=== PATIENT | male | born 1975 | race Caucasian/White ===

== ENCOUNTER 2023-06-20 15:07 | Inpatient (IN) | payer OTHER ==
[2023-06-20 17:58] VITALS: BMI 23.3
[2023-06-20] MEDS ORDERED: IBUPROFEN 600 MG TABLET (FP) PO PRN (18:32)
[2023-06-20] MEDS ORDERED: LOPERAMIDE HCL 2 MG CAPSULE PO PRN (18:32)
[2023-06-20] MEDS ORDERED: BENZONATATE 200 MG CAPSULE PO PRN (18:32)
[2023-06-20] MEDS ORDERED: NICOTINE POLACRILEX 2 MG LOZENGE BC PRN (18:32)
[2023-06-20] MEDS ORDERED: P-EPHED 60MG/TRIPROLIDI 2.5MG TABLET PO PRN (18:32)
[2023-06-20] MEDS ORDERED: IBUPROFEN 400 MG TABLET (FP) PO PRN (18:32)
[2023-06-20] MEDS ORDERED: ONDANSETRON *ODT* 4 MG TABLET SL PRN (18:32)
[2023-06-20] MEDS ORDERED: ACETAMINOPHEN 325 MG TABLET (FP) PO PRN (18:32)
[2023-06-20] MEDS ORDERED: DICYCLOMINE HCL 10 MG CAPSULE PO PRN (18:32)
[2023-06-20] MEDS ORDERED: POLYETHYLENE GLYCOL (HEALTHYLAX) 3350 17 GM PACKET PO PRN (18:32)
[2023-06-20] MEDS ORDERED: guaiFENesin 600 MG TABLET.ER (FP) PO PRN (18:32)
[2023-06-20] MEDS ORDERED: NALOXONE HCL (KLOXXADO) 8 MG SPRAY NS PRN (18:32)
[2023-06-20] MEDS ORDERED: BISMUTH SUBSALICYLATE 524 MG/30 ML PO PRN (18:32)
[2023-06-20] MEDS ORDERED: MAG HYDROX/AL HYDROX/SIMETH 30 ML UNIT-DOSE CUP PO PRN (18:32)
[2023-06-20] MEDS ORDERED: MAGNESIUM HYDROX 2400MG/30ML ORAL SUSPENSION 30 ML CUP PO PRN (18:32)
[2023-06-20] MEDS ORDERED: BENZOCAINE/MENTHOL (CHLORASEPTIC ) LOZENGE MM PRN (18:32)
[2023-06-20] MEDS ORDERED: NALOXONE HCL 0.4 MG/ML VIAL IM PRN (18:32)
[2023-06-20] MEDS ORDERED: NICOTINE 14 MG/24 HOURS TOPICAL PATCH TD ONE (20:05)
[2023-06-20] MEDS: hydrOXYzine PAMOATE 25 MG CAPSULE (FP) PO PRN (22:31)
[2023-06-20] MEDS: METHOCARBAMOL 500 MG TABLET PO PRN (22:31)
[2023-06-20] MEDS: MELATONIN 5 MG TABLETS PO SCH (22:31)
[2023-06-20] MEDS: THIAMINE HCL 100 MG TABLET (FP) PO SCH (22:31)
[2023-06-21] MEDS: NICOTINE 14 MG/24 HOURS TOPICAL PATCH TD SCH (10:17)
[2023-06-21] MEDS: PRENATAL VITAMINS W/ FOLIC ACID TABLET (FP) PO SCH (10:17)
[2023-06-21] MEDS: METHOCARBAMOL 500 MG TABLET PO PRN ×3 (10:19→23:13)
[2023-06-21] MEDS: hydrOXYzine PAMOATE 25 MG CAPSULE (FP) PO PRN ×3 (10:19→23:13)
[2023-06-21] MEDS ORDERED: busPIRone HCL 5 MG TABLET PO ONE (11:14)
[2023-06-21 11:22] LABS: HEMATOCRIT 44.7 % (35.4-49); HEMOGLOBIN 15.2 GM/dL (11.7-16.9); MCH 31.6 pg (25.7-33.7); MEAN CELL VOLUME 92.9 fl (80-96); MEAN PLT VOLUME 7.5 fl (7.5-11.1); PLATELET COUNT 206 10^3/uL (134-434); RBC 4.81 M/mm3 (4.00-5.60); RDW 13.9 % (11.9-15.9); WHITE BLOOD COUNT 7.8 K/mm3 (4.0-10.0)
[2023-06-21 11:23] LABS: POTASSIUM 4.1 mmol/L (3.5-5.1)
[2023-06-21 11:35] LABS: CALCIUM 8.4 mg/dL (8.5-10.1)
[2023-06-21 11:36] LABS: ALBUMIN 3.2 g/dl (3.4-5.0); BLOOD UREA NITROGEN 14.9 mg/dL (7-18)
[2023-06-21 11:39] LABS: CREATININE 0.9 mg/dL (0.55-1.3)
[2023-06-21 11:40] LABS: BILIRUBIN,TOTAL 0.3 mg/dL (0.2-1); TOT PROT 5.6 g/dl (6.4-8.2)
[2023-06-21] MEDS: THIAMINE HCL 100 MG TABLET (FP) PO SCH (22:38)
[2023-06-21] MEDS: HALOPERIDOL 5 MG TABLET PO SCH (22:39)
[2023-06-21] MEDS: busPIRone HCL 10 MG TABLET (FP) PO SCH (22:39)
[2023-06-22] MEDS: hydrOXYzine PAMOATE 25 MG CAPSULE (FP) PO PRN ×4 (05:36→23:51)
[2023-06-22] MEDS: METHOCARBAMOL 500 MG TABLET PO PRN ×4 (05:36→23:51)
[2023-06-22] MEDS: PRENATAL VITAMINS W/ FOLIC ACID TABLET (FP) PO SCH (10:07)
[2023-06-22] MEDS: NICOTINE 14 MG/24 HOURS TOPICAL PATCH TD SCH (10:07)
[2023-06-22] MEDS: busPIRone HCL 10 MG TABLET (FP) PO SCH ×2 (10:07→22:05)
[2023-06-22] MEDS ORDERED: BUPRENORPHINE HCL 150 MCG, BUPRENORPHINE HCL 75 MCG BC ONE (11:59)
[2023-06-22] MEDS ORDERED: diazePAM 5 MG TABLET PO PRN (11:59)
[2023-06-22] MEDS ORDERED: BUPRENORPHINE HCL 150 MCG, BUPRENORPHINE HCL 75 MCG BC PRN (11:59)
[2023-06-22] MEDS: HALOPERIDOL 5 MG TABLET PO SCH (22:05)
[2023-06-22] MEDS: THIAMINE HCL 100 MG TABLET (FP) PO SCH (22:05)
[2023-06-23] MEDS ORDERED: BUPRENORPHINE HCL 150 MCG, BUPRENORPHINE HCL 75 MCG BC PRN
[2023-06-23] MEDS: BUPRENORPHINE HCL 150 MCG, BUPRENORPHINE HCL 75 MCG BC SCH ×2 (05:51→17:10)
[2023-06-23] MEDS: busPIRone HCL 10 MG TABLET (FP) PO SCH ×2 (09:50→22:26)
[2023-06-23] MEDS: METHOCARBAMOL 500 MG TABLET PO PRN ×2 (09:50→17:10)
[2023-06-23] MEDS: NICOTINE 14 MG/24 HOURS TOPICAL PATCH TD SCH (09:54)
[2023-06-23] MEDS: PRENATAL VITAMINS W/ FOLIC ACID TABLET (FP) PO SCH (09:54)
[2023-06-23] MEDS: cloNIDine HCL 0.1 MG TABLET PO PRN ×2 (13:01→22:27)
[2023-06-23] MEDS: hydrOXYzine PAMOATE 25 MG CAPSULE (FP) PO PRN (13:02)
[2023-06-23] MEDS: HALOPERIDOL 5 MG TABLET PO SCH (22:26)
[2023-06-23] MEDS: THIAMINE HCL 100 MG TABLET (FP) PO SCH (22:26)
[2023-06-24] MEDS: BUPRENORPHINE HCL 450 MCG FILM BC SCH ×2 (05:42→17:13)
[2023-06-24] MEDS: METHOCARBAMOL 500 MG TABLET PO PRN ×3 (06:08→17:39)
[2023-06-24] MEDS: hydrOXYzine PAMOATE 25 MG CAPSULE (FP) PO PRN ×4 (06:08→18:43)
[2023-06-24] MEDS: PRENATAL VITAMINS W/ FOLIC ACID TABLET (FP) PO SCH (09:18)
[2023-06-24] MEDS: busPIRone HCL 10 MG TABLET (FP) PO SCH ×2 (09:18→21:53)
[2023-06-24] MEDS: cloNIDine HCL 0.1 MG TABLET PO PRN ×2 (09:18→22:18)
[2023-06-24] MEDS: NICOTINE 14 MG/24 HOURS TOPICAL PATCH TD SCH (09:20)
[2023-06-24] MEDS: HALOPERIDOL 5 MG TABLET PO SCH (21:53)
[2023-06-24] MEDS: THIAMINE HCL 100 MG TABLET (FP) PO SCH (21:53)
[2023-06-25] MEDS: BUPRENORPHINE/NALOXONE 4 MG/1 MG FILM PACKET SL SCH ×2 (05:47→17:15)
[2023-06-25] MEDS: METHOCARBAMOL 500 MG TABLET PO PRN ×2 (10:19→17:26)
[2023-06-25] MEDS: cloNIDine HCL 0.1 MG TABLET PO PRN (10:19)
[2023-06-25] MEDS: NICOTINE 14 MG/24 HOURS TOPICAL PATCH TD SCH (10:19)
[2023-06-25] MEDS: PRENATAL VITAMINS W/ FOLIC ACID TABLET (FP) PO SCH (10:19)
[2023-06-25] MEDS: busPIRone HCL 10 MG TABLET (FP) PO SCH ×2 (10:19→21:22)
[2023-06-25] MEDS: hydrOXYzine PAMOATE 25 MG CAPSULE (FP) PO PRN ×2 (10:23→17:27)
[2023-06-25] MEDS ORDERED: BUPRENORPHINE/NALOXONE 4 MG/1 MG FILM PACKET SL ONE (12:00)
[2023-06-25] MEDS: HALOPERIDOL 5 MG TABLET PO SCH (21:22)
[2023-06-25] MEDS: THIAMINE HCL 100 MG TABLET (FP) PO SCH (21:23)
[2023-06-25] MEDS: MELATONIN 5 MG TABLETS PO SCH (21:23)
[2023-06-26] MEDS ORDERED: BUPRENORPHINE/NALOXONE 8 MG/2 MG FILM PACKET SL ONE (06:00)
[2023-06-26 09:05] VITALS: RESP 16; TEMP 97.3
[2023-06-26] MEDS: hydrOXYzine PAMOATE 25 MG CAPSULE (FP) PO PRN (10:58)
[2023-06-26] MEDS: busPIRone HCL 10 MG TABLET (FP) PO SCH (10:58)
[2023-06-26] MEDS: PRENATAL VITAMINS W/ FOLIC ACID TABLET (FP) PO SCH (10:58)
[2023-06-26] MEDS: METHOCARBAMOL 500 MG TABLET PO PRN (10:58)
[2023-06-26] MEDS: NICOTINE 14 MG/24 HOURS TOPICAL PATCH TD SCH (10:58)
[2023-06-26 12:57] VITALS: BP 158/81; PULSE 55
== END 2023-06-26 14:20 | disposition home or self-care (01) | DRG 773 ==
LOC: YASAS 15:07 → Y6N 18:43
PROVIDERS: ADMIT Allergy & Immunology; ATTEND Allergy & Immunology
PROC: HZ2ZZZZ Detoxification Services for Substance Abuse Treatment (ICD-10-PCS; principal; 2023-06-20)
DX: F11.23 Opioid dependence with withdrawal (principal); F10.20 Alcohol dependence, uncomplicated; F13.29 Sedative, hypnotic or anxiolytic dependence with unspecified sedative, hypnotic or anxiolytic-induced disorder; F14.20 Cocaine dependence, uncomplicated; F12.20 Cannabis dependence, uncomplicated; F17.210 Nicotine dependence, cigarettes, uncomplicated; F20.9 Schizophrenia, unspecified; F19.280 Other psychoactive substance dependence with psychoactive substance-induced anxiety disorder; F19.24 Other psychoactive substance dependence with psychoactive substance-induced mood disorder; F41.9 Anxiety disorder, unspecified; Z20.822 Contact with and (suspected) exposure to COVID-19; Z99.89 Dependence on other enabling machines and devices; Z59.01 Sheltered homelessness
CPT/HCPCS: 36415; 80053; 85027; 86780; 87635; 87811; 93005; 93010